=== PATIENT | male | born 1975 | race Caucasian/White ===

== ENCOUNTER 2016-10-16 15:22 | Day surgery (SDC) | payer BC ==
--- NOTE | ~2016-10-16 | ER ---
PATIENT'S NAME: ASPEN ART [facility] AGE: 41 Y [address] ROOM: [place] [address] [place] [facility] [place]: 10/16/2016 ER/Outpatient Report DISCHARGE DATE: 10/16/2016 FAMILY PHYSICIAN: Elieser Castanon MD ATTENDING PHYSICIAN: Jose Martin Lynne Time of Arrival: 1525 hours. Time of Exam: 1525 hours. CHIEF COMPLAINT: Finger injury. HISTORY OF PRESENT ILLNESS: The patient states approximately 12 noon today he got his right ring finger caught in a heavy pipe gate. He was initially seen at the [facility], they did do some x-rays there and gave him a shot of some kind of antibiotic and then told him he needed to come here for further care. He did eat last about 1:30 this afternoon. He states his tetanus is current from a month ago when he was seen by his primary provider in [place]. He does rate the pain of the fingers as 4/10, not too bad if he does not touch it. Denies any other injury with the incident. ALLERGIES: HE HAS NO KNOWN ALLERGIES. CURRENT MEDICATIONS: On his chart and reviewed by me. PAST MEDICAL HISTORY: Non-Hodgkin's lymphoma 5 years ago. SOCIAL HISTORY: He denies use of tobacco, drugs, or alcohol. REVIEW OF SYSTEMS: All negative other than those mentioned in the HPI. PHYSICAL EXAMINATION: VITAL SIGNS: He weighed 118.4 kg. Blood pressure 154/72, pulse of 84, respirations 16, temperature of 97.4, and O2 saturations 97% on room air. GENERAL: He is awake, alert, and oriented x4. SKIN: [place], warm, and dry. RESPIRATIONS: Even and nonlabored. Lung sounds are clear throughout. HEART: Regular rate and rhythm. MUSCULOSKELETAL: The patient's right ring finger has a dressing on it. It PATIENT'S NAME: ASPEN ART [facility] AGE: 41 Y [address] ROOM: [place] [address] [place] [facility] [place]: 10/16/2016 ER/Outpatient Report DISCHARGE DATE: 10/16/2016 FAMILY PHYSICIAN: Elieser Castanon MD ATTENDING PHYSICIAN: Jose Martin Lynne was removed and the finger was examined. He does have the nail bed lifted up. Area was re-dressed with a nonadhering dressing. DIAGNOSTIC DATA: X-rays were completed show a tuft fracture. Dr. Lynne was contacted regarding the patient. He plans to take the patient to surgery for repair. LABORATORY DATA: CBC and Chem panel were done, they were within normal limits. EMERGENCY DEPARTMENT COURSE: Saline lock was initiated. The patient was given morphine 2 mg IV and Ancef 1 g IV. IMPRESSION: Open tuft fracture of the right ring finger. PLAN: The patient to go to the OR for care of Dr. Lynne. The patient his are aware of plan of care. WAYNE COMBS APRN FOR MD JASON GARCIA/farzad /[id number] d: 10/16/16 2350 t: 10/28/16 0834, OUTPATIENT REPORT
--- NOTE | ~2016-10-16 | OR ---
PATIENT'S NAME: L[facility] PICKENS [facility] AGE: 41 Y [address] ROOM: [place] [address] LOCATION: [facility] [place] AD[place] DATE: 10/16/2016 OR/Procedure Report DISCHARGE DATE: 10/16/2016 FAMILY PHYSICIAN: Elieser Castanon MD ATTENDING PHYSICIAN: Cecilio Lynne SURGEON: Cecilio Lynne DO KELP CUTTER: DATE OF PROCEDURE: 10/16/2016 PREOPERATIVE DIAGNOSIS: Right open tuft fracture involving ring finger, distal phalanx status post crush injury. POSTOPERATIVE DIAGNOSES: Right open tuft fracture involving ring finger, distal phalanx status post crush injury, with injury to the nail plate and open laceration at the tip of the distal phalanx as well as dorsally. PROCEDURE: Irrigation, debridement, removal of nail, repair of nail plate, and repair of lacerations to his right dominant ring finger, open tuft fracture. FLUIDS: 3 L saline. TETANUS: Up-to-date. ANTIBIOTICS: Received in [facility] and then 1 g Ancef here at [facility]. ANESTHESIA: Local 0.5% plain Marcaine 15 mL plus IV sedation. COMPLICATIONS: None. BLOOD LOSS: Minimal, less than 1 mL. INDICATIONS: Lane Pickens is a pleasant 41-year-old male, who received a crush injury to his right dominant hand involving the ring finger. X-rays show comminuted distal phalanx fracture, extra-articular. The tuft fracture had avulsed the nail and created lacerations in the periphery over the dorsum and at the fingertip. He was seen in [facility], given antibiotics, and then transferred here to [facility] where they confirmed tetanus was up-to-date, gave 1 g IV Ancef, placed him in a sterile gauze, and consulted me. I recommended formal irrigation, debridement with removal of the nail, repair of the nail plate, decontaminate and irrigate the wound, and then replace the nail bed and place him in a splint. DESCRIPTION OF PROCEDURE: The fracture was reduced after 3 L of irrigation, and nail had been placed on the back table and Betadine. The nail was then PATIENT'S NAME: [facility] AGE: 41 Y [address] ROOM: [place] [address] LOCATION: [facility] [place] AD[place] DATE: 10/16/2016 OR/Procedure Report DISCHARGE DATE: 10/16/2016 FAMILY PHYSICIAN: Elieser Castanon MD ATTENDING PHYSICIAN: Cecilio Lynne replaced back in place after thorough irrigation and repair of the nail plate using catgut, chromic suture. With the fracture near anatomic confirmed in AP and lateral, the nail was replaced and Dermabonded in place. The lacerations have been approximated with Prolene and a splint placed in extension. Sterile dressing in the form of Xeroform, 4x4, soft roll, loosely wrapped Darryl, splint holding the fracture in extension and then Coban. Sponge and needle counts correct x3. Complications none. He will be sent home. Continue antibiotics and pain medicine. RICE, elevate. Keep the dressing clean, dry, and intact. Follow up in the office 2 weeks. CECILIO LYNNE DO PH/modl /[id number] d: 10/17/16 0120 t: 10/20/16 1835, OPERATIVE SUMMARY
--- NOTE | ~2016-10-16 | HP ---
PATIENT'S NAME: ASPEN ART [facility] AGE: 41 Y [address] ROOM: [place] [address] [place] [facility] [place]: 10/16/2016 History & Physical DISCHARGE DATE: 10/16/2016 FAMILY PHYSICIAN: Elieser Castanon MD ATTENDING PHYSICIAN: Jose Martin Lynne DATE OF SERVICE: CHIEF COMPLAINT: Right hand pain. HISTORY OF PRESENT ILLNESS: He got his right dominant hand ring finger at the distal tip caught between a fence. He sustained a crush injury and was seen in [facility]. He transferred here to the emergency room. They notified me a consultation of open tuft fracture right dominant hand. He has nail bed injury and fracture about the distal phalanx, right ring finger. X-rays 3-view show a comminuted tuft fracture, distal phalanx, right ring finger. It is distal to the DIP joint. Pierced injury to the nail bed and skin with open. He had received antibiotics in the emergency department as well as confirmed tetanus up to date, wrapped in sterile gauze. PAST MEDICAL HISTORY: Reviewed and positive for hypercholesterolemia, GERD, and lymphoma B-cell type. PAST SURGERIES: Include chest drains from ascites and prior tumors from the lymphoma. CURRENT MEDICATIONS: Reviewed, 1. Crestor. 2. Nexium. ALLERGIES: NO KNOWN DRUG ALLERGIES. PHYSICAL EXAMINATION: GENERAL: The patient is alert and oriented x3, in no acute distress. HEAD: Normocephalic, atraumatic. NECK: Supple. Trachea midline. The patient breathes without use of accessory muscles. ABDOMEN: Soft, nontender. Last p.o. was approximately at 1400. We will plan digital nerve block with PATIENT'S NAME: ASPEN ART [facility] AGE: 41 Y [address] ROOM: [place] [address] [place] [facility] [place]: 10/16/2016 History & Physical DISCHARGE DATE: 10/16/2016 FAMILY PHYSICIAN: Elieser Castanon MD ATTENDING PHYSICIAN: Jose Martin Lynne Anesthesia with local sedation. He understands the small risk of aspiration that could lead to pneumonia. He has no pain in his right upper extremity at the wrist, elbow, and shoulder. He has obvious deformity about the ring finger nail bed with open tuft fracture as described above. TREATMENT PLAN: Irrigation and debridement of open tuft fracture, right dominant, ring finger. He understands the risks, benefits, and potential complications. Benefits; obviously decontaminating the injury, trying to prevent infection. Risks; he understands the risk of nonunion, malunion, abnormality of the nail due to the trauma. Chronic deformity; he understands the risk of fibrous or nonunion. He understands he may have permanent numbness in this region due to the crush injury interrupting the digital nerve. Plan; irrigation, debridement, removal of the nail and repair of the nail plate. He will continue antibiotics and pain control. I will see him in the office in a week. JOSE MARTIN LYNNE DO PH/modl /[id number] D: [id number] T: [id number] HISTORY & PHYSICAL
[2016-10-16 16:10] LABS: BASOPHIL % 0.2 %; EOSINOPHIL % 0.4 %; HEMATOCRIT 53.5 % (37.0-53.0); HEMOGLOBIN 18.6 g/dL (12.0-17.0); IMMATURE GRANULOCYTE % 0.4 %; LYMPHOCYTE # 1.2 K/uL (0.8-4.0); LYMPHOCYTE % 11.8 %; MCH 31.8 pg (27.0-34.0); MCHC 34.8 gm/dL (32.0-36.5); MCV 91.6 fl (83.0-98.0); MONOCYTE # 0.6 K/uL (0.0-1.0); MONOCYTE % 5.5 %; MPV 9.2 fl (9.4-12.4); NEUTROPHIL # (ANC) 8.5 K/uL (1.4-9.0); NEUTROPHIL % 81.7 %; NRBC % 0 /100WBC (0-0.00); PLATELET COUNT 128 K/uL (150-450); RBC 5.84 M/uL (4.00-6.00); RDW-CV 12.6 % (11.9-14.6); WBC 10.4 K/uL (4.0-11.0)
[2016-10-16 16:25] LABS: ALK PHOS 66 IU/L (33-138); ALT 39 IU/L (12-78); ANION GAP 9.4 (10.0-19.0); AST 25 IU/L (10-40); BLOOD UREA NITROGEN 18 mg/dL (6-24); CALCIUM 8.9 mg/dL (8.5-10.5); CHLORIDE 104 mMol/L (96-110); CO2 29 mMol/L (22-32); CREATININE 1.2 mg/dL (0.6-1.3); ESTIMATED GFR (MDRD EQUATION) > 60; POTASSIUM 4.4 mMol/L (3.7-5.1); SODIUM 138 mMol/L (135-145); TOTAL PROTEIN 7.4 g/dL (6.0-8.4)
[2016-10-16] MEDS ORDERED: FISH OIL 1,0001 EACH PO (17:15)
[2016-10-16] MEDS ORDERED: NEXIUM40 MG PO (17:15)
[2016-10-16] MEDS ORDERED: CRESTOR20 MG PO (17:16)
[2016-10-16] MEDS ORDERED: VITAMIN D-32000 UNI1 PO (17:16)
[2016-10-16] MEDS ORDERED: NIASPAN500 MG PO (17:16)
[2016-10-16] MEDS ORDERED: LEVAQUIN500 MG PO (18:37)
[2016-10-16] MEDS ORDERED: HYDROCODON-ACE1 EAC4 PO (18:38)
== END 2016-10-16 19:08 | disposition disaster alternative care site (69) ==
LOC: GACC 15:22 → GSDC 16:40
PROVIDERS: Nurse Practitioner Family
PROC: 2W3JX1Z Immobilization of Right Finger using Splint (ICD-10-PCS; principal; 2016-10-16)
PROC: 0HQQXZZ Repair Finger Nail, External Approach (ICD-10-PCS; 2016-10-16)
PROC: 0PSTXZZ Reposition Right Finger Phalanx, External Approach (ICD-10-PCS; 2016-10-16)
DX: S62.634A Displaced fracture of distal phalanx of right ring finger, initial encounter for closed fracture (principal); E78.00 Pure hypercholesterolemia, unspecified; K21.9 Gastro-esophageal reflux disease without esophagitis; Z79.899 Other long term (current) drug therapy; Z91.09 Other allergy status, other than to drugs and biological substances; X58.XXXA Exposure to other specified factors, initial encounter
CPT/HCPCS: J0690; J2270; J7120